=== PATIENT | female | born 2000 | race Asian ===

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

== ENCOUNTER 2018-01-18 12:19 | Emergency (ER) | payer OTHER ==
[2018-01-18 12:26] VITALS: BP 132/88
--- NOTE | 2018-01-18 12:34 | EDPHY ---
H & P Stated Complaint: COUGH/RUNNY NOSE Time Seen by Provider: 01/18/18 12:34 HPI/ROS: HPI: This is a 17-year-old female who presents with Chief Complaint: Productive cough Location: Chest Quality: Productive cough Duration: 3 days Signs and Symptoms: + subjective fever, no nausea, no vomiting, no diarrhea, no urinary symptoms, no chest pain, no shortness of breath, no wheezing, no sore throat, no neck stiffness, no joint pain, no swollen glands, no ear pain, no rash, + body aches Timing: Rapid onset Severity: Moderate Context: Patient is a [employer] student presents with complaints of 3 day history of rapidly worsening productive cough accompanied by subjective fevers worse at night, chills, body aches. Patient recently traveled via air to [place] and back. She denies any shortness of breath/lower extremity edema/wheezing. She is a nonsmoker and does not take any oral control pills. She also reports that she has rhinorrhea that is green in color. Modifying Factors: None Comment: ROS: see HPI Constitutional: + fever, no chills, no weight loss Eyes: No blurred vision Respiratory: No shortness of breath, no cough Cardiovascular: No chest pain, no palpitations Gastrointestinal: No nausea, no vomiting, no diarrhea, no hematemesis, no blood in stool Genitourinary: No dysuria, no blood in urine Extremities: No myalgias, no edema Neurologic: No weakness, no numbness Skin: No rashes, no petechiae Hematologic: No bruising, no bleeding MEDICAL/SURGICAL/SOCIAL HISTORY: Medical history: Generally healthy. Does not take any regular medications. Surgical history: Denies Social history: [employer] student. Family history noncontributory. CONSTITUTIONAL: Ill but nontoxic-appearing teenage female, awake and alert, no obvious distress HEENT: Atraumatic and normocephalic, PERRL, EOMI. Nares patent; green rhinorrhea; no nasal mucosal edema. Tympanic membranes clear. Oropharynx clear , no exudate and moist pink mucosa. Airway patent. No lymphadenopathy. No meningismus. Cardiovascular: Normal S1/S2, regular rate, regular rhythm, without murmur rub or gallop. PULMONARY/CHEST: Symmetrical and nontender. Clear to auscultation bilaterally. Good air movement. No accessory muscle usage. ABDOMEN: Soft, nondistended, nontender, no rebound, no guarding, no peritoneal signs, no masses or organomegaly. No CVAT. EXTREMITIES: 2/2 pulses, strength 5/5, no deformities, no clubbing, no cyanosis or edema. NEUROLOGICAL: no focal neuro deficits. GCS 15. SKIN: Warm and dry, no erythema. no rash. Good capillary refill. Source: Patient Exam Limitations: No limitations - Personal History LMP (Females 10-55): 22-28 Days Ago Current Tetanus/Diphtheria Vaccine: No - Medical/Surgical History Hx Asthma: No Hx Chronic Respiratory Disease: No Hx Diabetes: No Hx Cardiac Disease: No Hx Renal Disease: No Hx Cirrhosis: No Hx Alcoholism: No Hx HIV/AIDS: No Hx Splenectomy or Spleen Trauma: No Other PMH: PMH:none. PSH:none - Social History Smoking Status: Never smoked Constitutional: Initial Vital Signs Temperature (C) 36.5 C 01/18/18 12:24 Heart Rate 89 01/18/18 12:24 Respiratory Rate 18 01/18/18 12:24 Blood Pressure 132/88 H 01/18/18 12:24 O2 Sat (%) 96 01/18/18 12:24 O2 Delivery Mode Room Air Allergies/Adverse Reactions: seafood Allergy (Uncoded 01/18/18 12:23) Home Medications: Medication Instructions Recorded Azithromycin [Zithromax] 250 mg PO DAILY #6 tab 01/18/18 Benzonatate [Tessalon Pearles (RX)] 100 mg PO Q6 PRN #15 cap 01/18/18 Medical Decision Making ED Course/Re-evaluation: Vital signs reviewed and stable. Wells Criteria low for pulmonary embolism. Due to severity of symptoms; treat with antibiotic course and antitussives. No hypoxia/wheezing/respiratory distress This patient was seen under the supervision of my secondary supervising physician. I evaluated care for this patient independently. Discussed this patient with Dr. Mei who did not see the patient. Differential Diagnosis: Differential diagnosis includes but is not limited to upper respiratory infection, bronchitis, asthma, pneumonia, pulmonary embolism. Departure - Departure Disposition: Home, Routine, Self-Care Clinical Impression: Acute bacterial bronchitis Condition: Good Instructions: Acute Bronchitis (ED) Additional Instructions: Rest as much as possible until you are feeling better. Consume a minimum of 8-10 glasses of water or electrolyte fluid replacement drinks that include Gatorade, Powerade, Pedialyte. Eat a bland diet for the next 48 hours and then slowly advance as tolerated. Take antibiotic as directed until complete. Do not skip a dose. Take Tessalon Perles every 6 hr as needed for cough. Use [id number] Sudafed as needed for nasal congestion. Return to the ER immediately if you experience fevers/chills, shortness of breath, abdominal pain, inability to tolerate oral intake, or any other symptoms that concern you. Referrals: [facility] [Clinic] - As per Instructions Prescriptions: Azithromycin [Zithromax] 250 mg PO DAILY #6 tab Benzonatate [Tessalon Pearles (RX)] 100 mg PO Q6 PRN #15 cap PRN Reason: Cough, Moderate
== END 2018-01-18 12:54 | disposition home or self-care (01) ==
DX: J20.8 Acute bronchitis due to other specified organisms (principal); B96.89 Other specified bacterial agents as the cause of diseases classified elsewhere